=== PATIENT | female | born 2005 | race Caucasian/White ===

== ENCOUNTER 2023-08-26 08:58 | Outpatient (OUT) | payer OTHER, SELFPAY ==
--- NOTE | 2023-08-26 09:35 | PM.PRESUREVA ---
History of Present Illness History of Present Illness Chief complaint: etd Narrative: Patient presents for preadmission testing. The patient reports a long history of ear infections and had tubes placed in childhood. The patient states she has had an increase in ear infections and has noticed decreased hearing. She denies recent fever, sore throat, cough, or any other complaints. Review of Systems ROS Narrative REVIEW OF SYSTEMS: Negative except as stated in HPI, ten or more systems reviewed. Constitutional: No fever, chills, weakness ENT: No sore throat or epistaxis Cardiovascular: No edema, chest pain, palpitations, or activity intolerance Respiratory: No shortness of breath, cough, or wheezing Musculoskeletal: No joint pain or swelling Gastrointestinal: No abdominal pain, constipation, diarrhea, or vomiting Genitourinary: No dysuria or hematuria Neurological: No numbness, tingling, weakness, or headache Psychiatric: No mood changes [facility] Medical History (Updated 08/26/23 @ 09:37 by Ilana Desir NP) Otalgia ?H92.09 - Otalgia, unspecified ear (ICD-10) Anxiety ?F41.9 - Anxiety disorder, unspecified (ICD-10) COVID-19 ?U07.1 - COVID-19 (ICD-10) Headache ?R51.9 - Headache, unspecified (ICD-10) Headaches due to old head injury ?G44.309 - Post-traumatic headache, unspecified, not intractable (ICD-10) ?S09.90XS - Unspecified injury of head, sequela (ICD-10) Menorrhagia ?N92.0 - Excessive and frequent menstruation with regular cycle (ICD-10) Dysmenorrhea ?N94.6 - Dysmenorrhea, unspecified (ICD-10) Hearing loss ?H91.90 - Unspecified hearing loss, unspecified ear (ICD-10) Acute otitis media ?H66.90 - Otitis media, unspecified, unspecified ear (ICD-10) Seasonal allergies ?J30.2 - Other seasonal allergic rhinitis (ICD-10) Dysfunction of both eustachian tubes ?H69.93 - Unspecified Eustachian tube disorder, bilateral (ICD-10) Tachycardia ?R00.0 - Tachycardia, unspecified (ICD-10) Surgical History (Updated 08/26/23 @ 09:21 by Ilana Desir NP) History of myringotomy ?Z98.890 - Other specified postprocedural states (ICD-10) History of tonsillectomy ?Z90.89 - Acquired absence of other organs (ICD-10) Family History (Updated 08/26/23 @ 09:21 by Ilana Desir NP) Other Family history of colon cancer Family history of hypertension Family history of stroke Family history of thyroid cancer Social History (Updated 08/26/23 @ 09:17 by Ilana Desir NP) Within the past year, how often did you have a drink containing alcohol: monthly or less Smoking status: Never smoker Non-prescribed substance use: denies use Previous occupational history: Student Highest level of school completed/degree received: some college, no degree Meds Home Medications and Allergies Home Medications ?Medication ?Instructions ?Recorded ?Confirmed ?Type escitalopram oxalate 10 mg tablet 10 mg PO DAILY 08/26/23 08/26/23 History norethindrone 1.5 mg-ethinyl 1 tab PO QPM 08/26/23 08/26/23 History estradiol 30 mcg(21)/iron 75 mg(7) tablet (Stella Fe 1.5/30 (28)) Allergies Allergy/AdvReac Type Severity Reaction Status Date / Time No Known Drug Allergies Allergy Verified 08/26/23 09:15 Exam Narrative Exam Narrative: Constitutional: Awake, alert, comfortable, well-appearing, nontoxic, interactive, vital signs as charted Head: Normocephalic, atraumatic Eyes: Conjunctiva and lids normal to inspection, pupils normal ENT: Left tympanic membrane pearly warren, Right tympanic membrane with effusion, naris patent, posterior oropharynx clear, oral mucosa moist Neck: Supple, normal appearance, normal range of motion, no meningeal signs, no lymphadenopathy Respiratory: No respiratory distress, breath sounds clear Cardiovascular: Regular rate and rhythm, strong and regular heart tones Musculoskeletal: Normal gait, no swelling or edema Skin: No rashes or induration, no lesions, only visible skin inspected Neuro: No neurological deficits, normal sensation Psychiatric: Oriented ?3, normal affect Assessment and Plan Assessment and Plan (1) Acute otitis media: (2) Dysfunction of both eustachian tubes: (3) Otalgia: Plan Bilateral myringotomy with insertion of ventilation tubes scheduled with Dr. Concepcion 09/03/2023.
[2023-08-26 10:16] LABS: Basophils Percent Auto 0.8 % (0.2-2.0); Eosinophils Absolute Auto 0.2 10^3/uL (0.0-0.7); Eosinophils Percent Auto 3.8 % (0.9-7.0); Hematocrit 39.5 % (36.0-48.0); Hemoglobin 13.7 g/dL (12.0-16.0); Immature Granulocytes Abs Auto 0.01 10^3/uL (0.00-0.03); Immature Granulocytes Pct Auto 0.2 % (0.0-0.5); Lymphocytes Absolute Auto 2.1 10^3/uL (1.2-3.8); Lymphocytes Percent Auto 40.2 % (20.5-60.0); Mean Corpuscular HGB Conc 34.7 g/dL (29.9-35.2); Mean Corpuscular Hemoglobin 31.6 pg (26.7-34.0); Mean Corpuscular Volume 91.2 fL (81.0-99.0); Mean Platelet Volume 11.1 fL (9.5-13.5); Monocytes Absolute Auto 0.4 10^3/uL (0.3-0.8); Neutrophils Absolute Auto 2.5 10^3/uL (1.4-6.5); Platelet Count 389 10^3/uL (150-450); Red Blood Count 4.33 10^6/uL (4.20-5.40); White Blood Count 5.3 10^3/uL (4.0-11.0)
== END 2023-08-26 08:59 | disposition home or self-care (01) ==
LOC: PST 08:59
PROVIDERS: PCP Family Medicine; Visit Provider Otolaryngology
DX: Z01.812 Encounter for preprocedural laboratory examination (principal); Z01.818 Encounter for other preprocedural examination; H66.006 Acute suppurative otitis media without spontaneous rupture of ear drum, recurrent, bilateral
CPT/HCPCS: 36415; 85025; G0463

== ENCOUNTER 2023-09-03 10:21 | Day surgery (SDC) | payer OTHER, SELFPAY ==
[2023-08-26 09:28] VITALS: BP 124/82; PULSE 94; TEMP 36.5; O2SAT 97; BMI 37.3
[2023-09-03] VITALS (10 sets, daily range): BP systolic 93–116; BP diastolic 42–83; PULSE 59–118; TEMP 36.1; O2SAT 97–99; BMI 36.7
--- NOTE | 2023-09-03 | OP_ITS ---
OPERATION DATE: 09/03/2023 PRIMARY CARE PHYSICIAN: Sabino Cadena D.O. SURGEON: Veronica Concepcion M.D. PREOPERATIVE DIAGNOSIS: Eustachian tube dysfunction. POSTOPERATIVE DIAGNOSIS: Eustachian tube dysfunction. PROCEDURE: Bilateral myringotomy and tubes. ANESTHESIA: General LMA. COMPLICATIONS: None. FINDINGS: Bilateral dry middle ears. INDICATIONS: This 18-year-old presented with recurrent ear infections, verified by me on examination in the office. She also has a prior history of tympanostomy tube placement in 2019. PROCEDURE: Patient identified in the holding area and taken back to the OR where she was placed in the supine position. After induction of general anesthesia by LMA, the right ear was approached with the otomicroscope. Cerumen was cleaned from the canal using a cerumen curette and an anterior radial myringotomy was performed. An Zepeda tympanostomy tube was inserted with microdissection, and attention turned to the left ear where the same procedure was performed. Patient was then awakened and taken to the recovery room in good condition. JV
--- OUTSIDE RECORDS SUMMARY | 2023-09-03 10:46 | XMS_ITS | CCD ---
Author Organization [facility] Care Team Providers Care Job Press Feeder Name Role Phone Long, Bethany Meenakshi Unavailable Unavailable Long, Bethany Meenakshi Unavailable Unavailable Long, Bethany Meenakshi Unavailable Unavailable Racquel Castellanos Primary Care Unavailable Fidel Chaudhry Attending Unavailable RACQUEL CASTELLANOS Admitting Unavailable RACQUEL CASTELLANOS Attending Unavailable RACQUEL CASTELLANOS Primary Care Unavailable RACQUEL CASTELLANOS Consulting Unavailable Racquel Castellanos Unavailable BRET PRICE Attending Unavailable JULIENNE TALLEY Attending Unavailable RACQUEL CASTELLANOS Referring Unavailable VERONICA CONCEPCION Attending Unavailable RACQUEL CASTELLANOS Referring Unavailable VERONICA CONCEPCION Attending Unavailable NIGEL COFFMAN Attending Unavailable VERONICA CONCEPCION Attending Unavailable RACQUEL CASTELLANOS Referring Unavailable NIGEL COFFMAN Attending Unavailable SAIMA LYNCH Attending Unavailable SAIMA LYNCH Referring Unavailable Nidia LUCERO Attending Unavailable Medications Current Medications Medication Drug Class(es) Dates Sig (Normalized) Sig (Original) escitalopram 10 mg oral tablet (2 sources) Serotonin Reuptake Inhibitor Start: 03-11-2023 take 1 tablet by mouth every twenty-four hours Escitalopram Oxalate 10 MG 1 tablet Orally Once a day for 90 days Feb, Active stella 24 fe 1-20 mg-mcg(24) tablet (2 sources) Estrogen take 1 tablet by mouth every twenty-four hours Stella 24 Fe 1-20 MG-MCG(24) 1 tablet Orally Once a day Active Problems Problem Classification Problem Date Documented Da te Episodic/Chronic Anxiety disorders (3 sources) Anxiety; Translations: [Anxiety disorder, unspecified] Chronic Immunizations and screening for infectious disease (4 sources) Contact with and (suspected) exposure to other viral communicable diseases; Translations: [CONTCT EXPS OTH VIRL COMMUNICABL DZ] Onset: 01-05-2020 Episodic Malaise and fatigue (1 source) Other fatigue; Translations: [OTHER FATIGUE] Onset: 01-10-2020 Episodic Other aftercare (1 source) Other adjunct faculty for medical terminology (current) drug therapy Episodic Other nervous system disorders (1 source) Anosmia; Translations: [ANOSMIA] Onset: 01-10-2020 Episodic Other nervous system disorders (1 source) Parageusia; Translations: [PARAGEUSIA] Onset: 01-10-2020 Episodic Other nervous system disorders (2 sources) Sensory disorder of smell and/or taste; Translations: [Anosmia] Episodic Other nervous system disorders (2 sources) Loss of taste; Translations: [Parageusia] Episodic Other upper respiratory disease (2 sources) Allergic rhinitis; Translations: [Allergic rhinitis, unspecified] Chronic Otitis media and related conditions (1 source) Otitis media, unspecified, bilateral Episodic Results Test Name Value Interpretation Reference Range Facil ity Quantiferon-TB Plus (Client Incubated)on 08-27-2023 Gamma interferon background IA Qn (Bld) 0.00 International_Unit/ mL Invalid Interpretation Code [facility] Comment on above: Performed By: #### 1 [id number] #### [facility] [address] [place] [address] M. tuberculosis stim IFN-g by CD4+ CD8+ T-cells corrected for background Qn (Bld) 0.00 International_Unit/ mL Invalid Interpretation Code [facility] Comment on above: Performed By: #### 1 [id number] #### [facility] [address] [place] [address] M. tuberculosis stim IFN-g by CD4+ T-cells corrected for background Qn (Bld) 0.01 International_Unit/ mL Invalid Interpretation Code [facility] Comment on above: Performed By: #### 1 [id number] #### [facility] [address] [place] [address] M. tuberculosis stim IFN-g Ql (Bld) [Interp] Negative Invalid Interpretation Code Negative [facility] Comment on above: Result Comment: No r esponse to M tuberculosis antigens detected. Infection with M tuberculosis is unlikely, but high risk individuals should be considered for additional testing (ATS/IDSA/CDC Clinical Practice Guidelines, 2017). The reference range is an Antigen minus Nil result of <0.35 IU/mL. The specimen received for QuantiFERON testing was incubated by the ordering institution. Specific procedures outlined in our Directory of Services and in the package insert for the QuantiFERON Gold (In Tube) test must be followed to enable for proper stimulation of cells for the production of interferon gamma. Chemiluminescence immunoassay methodology Performed at: [facility] [id number] PhD Gigi Julio Performed By: #### 1 [id number] #### [facility] [address] [place], [place] [id number] Mitogen stimulated gamma interferon corrected for background Qn (Bld) >10.00 Invalid Interpretation Code [facility] Comment on above: Performed By: #### 1 [id number] #### [facility] [address] [place] [address] Service comment (Unsp spec) [Interp] Comment Invalid Interpretation Code [facility] Comment on above: Result Comment: Dave tiFERON-TB Gold Plus is a qualitative indirect test for M tuberculosis infection (including disease) and is intended for use in conjunction with risk assessment, radiography, and other medical and diagnostic evaluations. The QuantiFERON-TB Gold Plus result is determined by subtracting the Nil value from either TB antigen (Ag) value. The Mitogen tube serves as a control for the test. Performed By: #### 1 [id number] #### [facility] [address] [place] [id number] COVID-19 PCRon 01-07-2020 SARS-CoV-2, MILDRED Not Detected Normal Not Detected [facility] Comment on above: Result Comment: This nucleic acid amplification test was developed and its performance characteristics determined by [employer]. Nucleic acid amplification tests include PCR and TMA. This test has not been FDA cleared or approved. This test has been authorized by FDA under an Emergency Use Authorization (EUA). This test is only authorized for the duration of time the declaration that circumstances exist justifying the authorization of the emergency use of in vitro diagnostic tests for detection of SARS-CoV-2 virus and/or diagnosis of COVID-19 infection under section 564(b)(1) of the Act, 21 U.S.C. 360bbb-3(b) (1), unless the authorization is terminated or revoked sooner. When diagnostic testing is negative, the possibility of a false negative result should be considered in the context of a patient's recent exposures and the presence of clinical signs and symptoms consistent with COVID-19. An individual without symptoms of COVID-19 and who is not shedding SARS-CoV-2 virus would expect to have a negative (not detected) result in this assay. Performed By: #### C VDPCR #### [facility] [address] [place] [address] Austin Amaya Encounters Encounter Date Encounter Type Care Provider Facility Start: 08-23-2023 End: 08-23-2023 ambulatory [facility] [place]: 08-22-2023 End: 08-22-2023 ambulatory SAIMA LYNCH Not Available Start: 08-02-2023 End: 08-02-2023 ambulatory VERONICA H TIMMIS Not Available Start: 07-28-2023 End: 07-28-2023 ambulatory NIGEL COFFMAN Not Available Start: 07-22-2023 End: 07-22-2023 ambulatory VERONICA H TIMMIS Not Available Start: 06-26-2023 End: 06-26-2023 ambulatory VERONICA H TIMMIS Not Available Start: 06-19-2023 End: 06-19-2023 ambulatory JULIENNE TALLEY Not Available Start: 04-26-2023 End: 04-26-2023 ambulatory Racquel Castellanos Other [employer] Other Start: 04-26-2023 Telephone encounter Racquel Castellanos [facility] Start: 04-16-2023 End: 04-16-2023 ambulatory Racquel Castellanos Other [employer] Other Start: 04-16-2023 Telephone encounter Racquel Castellanos [facility] Start: 04-05-2023 End: 04-05-2023 ambulatory BRET PRICE Not Available Start: 03-08-2023 End: 03-08-2023 ambulatory NIGEL COFFMAN Not Available Start: 01-05-2020 End: 01-06-2020 Patient encounter procedure RACQUEL CASTELLANOS Facility: Start: 05-26-2018 End: 05-26-2018 Patient encounter procedure Racquel Castellanos Facility:[facility] Start: 04-10-2017 Ambulatory Bethany Alves Faci lity:[id number] Payers Date Payer Category Payer Unknown [id number] 2018 Self-pay 2003 Unknown [id number] 2.16.84 [id number] 2003 Unknown [id number] 2.16.84 [id number] 2003 Unknown [id number] 2.16.84 [id number] 2003 Unknown [id number] 2.16.84 [id number] 2003 Unknown [id number] 2.16.84 [id number] 2003 Unknown [id number] 2.16.84 [id number] 2003 Unknown [id number] 2.16.84 [id number] 2003 Unknown [id number] 2.16.840 .[id number] 1971 Unknown [id number] 2.16.84 [id number] 1959 Unknown [id number] Unknown [id number] [id number] .[id number] Social History Date Type Detail Facility Unknown if ever smoked [employer] Other Sex Assigned At Sex Assigned At Bir th [employer] Other Evaluation note 02-02-2024 Note Date & Type Note Facility 04-26-2023 Evaluation note Encounter Date Diagnosis Assessment Notes Apr, Anxiety (ICD-10 - F41.9) She voices that the medication seems to be helping. Prior to the medicine she would randomly cry and so far she has not had this happen. Her roommate has told her that there are situations or class that she has been in that previously would have sent her into a panic and now she is more calm and collected. She feels like this dose is adequate and would like to continue with it. If she changes her mind or feels the dose needs to be increased she should let me know. She is comfortable with this plan. She has not had any bad side effects from the medicine. I did recommend that she continue with the medication for one year before considering coming off the medication. If she finds that she wants to come off the medicine I asked her to call for guidance on how to wean off the medication. I will see her back in ten months unless needed sooner. Apr, Other longterm (current) drug therapy (ICD-10 - Z79.899) She has not had the lab work that was ordered drawn yet. Apr, Other 12:39 PM - 12:45 PM [employer] Other Evaluation note 04-16-2023 Note Date & Type Note Facility 04-16-2023 Evaluation note Encounter Date Diagnosis Assessment Notes Mar, Otitis media, unspecified, bilateral (ICD-10 - H66.93) [employer] [facility] Other History general Narrative - Reported 05-23-2018 Note Date & Type Note Facility 05-23-2018 History general N arrative - Reported Type Surgical History tonsillectomy Surgical History tubes in her ears 05/2018 [employer] [facility] Other Summary Purpose Family History No Family History Records FoundNo Family History Records FoundNo Family History Records FoundNo Family History Records FoundNo Family History Records FoundNo Family History Records Found Advance Directives No Advanced Directives Records FoundNo Advanced Directives Records FoundNo Advanced Directives Records FoundNo Advanced Directives Records FoundNo Advanced Directives Records FoundNo Advanced Directives Records Found Reason for Referral Reason appt consult for c hronic ear infections despite treatment Diagnosis 1 Otitis media, unspec ified, bilateral (H66.93) Referral Organization [facility] Referring Provider First Name Racquel Referring Provider Last Name Surinder Referring Provider Specialty Family Prac catrachita Referred Organization [facility] Referred Provider Veronica Concepcion Referred Address ,[place], [place],[address] Referred Provider Specialty Ear, Nose an d Throat Referral Priority Routine General Notes Julienne Griffith 04/16/2023 11:33:40 AM > referral faxed thru [facility] with TE message, [facility] message, last note from Dr Chaudhry and insurance card. mom understood that Dr Concepcion' office will call pt to schedule this appt Additional Source Comments INFORMATION SOURCE (unrecogn ized section and content) DATE CREATED AUTHOR 09/17/2017 [facility] DATE CREATED AUTHOR AUTHOR'S ORGANIZ ATION 05/27/2018 [facility] DATE CREATED AUTHOR AUTHOR'S ORGANIZ ATION 01/10/2020 [facility] DATE CREATED AUTHOR AUTHOR'S ORGANIZ ATION 08/23/2023 [facility] DATE CREATED AUTHOR AUTHOR'S ORGANIZ ATION 08/24/2023 [facility] DATE CREATED AUTHOR AUTHOR'S ORGANIZ ATION 08/29/2023 [facility] REASON FOR VISIT (unrecogniz ed section and content) referral6 wk recheck/anxiety FOR RECORDS PERTAINING TO PATIENTS WHO ARE OR HAVE BEEN ENROLLED IN A CHEMICAL DEPENDENCY/SUBSTANCEABUSE PROGRAM, SOME INFORMATION MAY BE OMITTED. This clinical summary was aggregated from multiple sources. Caution should be exercised in using it in the provision of clinical care. This summary normalizes information from multiple sources, and as a consequence, information in this document may materially change the coding, format and clinical context of patient data. In addition, data may be omitted in some cases. CLINICAL DECISIONS SHOULD BE BASED ON THE PRIMARY CLINICAL RECORDS. [employer] provides no warranty or guarantee of the accuracy or completeness of information in this document.
[2023-09-03 10:50] LABS: HCG Qualitative NEGATIVE (NEGATIVE)
[2023-09-03] MEDS: LACTATED RINGER'S SOLUTION 1,000 ML 50 ML IV (10:51)
== END 2023-09-03 12:47 | disposition home or self-care (01) ==
PROVIDERS: PCP Family Medicine; Visit Provider Otolaryngology
PROC: (CPT 126; principal; 2023-09-03 12:00)
DX: H69.83 Other specified disorders of Eustachian tube, bilateral (principal); H66.006 Acute suppurative otitis media without spontaneous rupture of ear drum, recurrent, bilateral; E66.01 Morbid (severe) obesity due to excess calories; Z68.36 Body mass index [BMI] 36.0-36.9, adult
CPT/HCPCS: 69436; 36415; 84703; J1110; J1885; J2250; J2405; J2704